=== PATIENT | female | born 1995 | race Asian ===

== ENCOUNTER 2018-04-26 19:13 | Emergency (ER) | payer OTHER ==
[~2018-04-26] VITALS: Ht 175.3 cm; Wt 108.9 kg
[2018-04-26 20:13] VITALS: BP 127/67; TEMP 98.1
== END 2018-04-26 20:19 | disposition home or self-care (01) ==
LOC: ED 19:13
DX: T63.481A Toxic effect of venom of other arthropod, accidental (unintentional), initial encounter (principal); S70.362A Insect bite (nonvenomous), left thigh, initial encounter; W57.XXXA Bitten or stung by nonvenomous insect and other nonvenomous arthropods, initial encounter; Y92.89 Other specified places as the place of occurrence of the external cause
CPT/HCPCS: 99281

== ENCOUNTER 2018-08-02 13:26 | Emergency (ER) | payer OTHER ==
[~2018-08-02] VITALS: Ht 175.3 cm; Wt 108.9 kg
[2018-08-02 13:45] VITALS: BP 137/83; TEMP 99.3
[2018-08-02 15:08] LABS: PLATELET COUNT 239 K/uL (152-353)
[2018-08-02 15:15] LABS: POTASSIUM 3.7 mmol/L (3.6-5.2)
== END 2018-08-02 15:20 | disposition home or self-care (01) ==
LOC: ED 13:26
PROVIDERS: Family Medicine
DX: O26.93 Pregnancy related conditions, unspecified, third trimester (principal)
CPT/HCPCS: 36415; 80053; 81000; 85027; 99283

== ENCOUNTER 2021-07-26 12:02 | Emergency (ER) | payer OTHER ==
[~2021-07-26] VITALS: Ht 172.7 cm; Wt 104.3 kg
[2021-07-26 13:09] VITALS: BP 133/69; TEMP 99
== END 2021-07-26 13:09 | disposition home or self-care (01) ==
LOC: ED 12:02
DX: J06.9 Acute upper respiratory infection, unspecified (principal); J02.0 Streptococcal pharyngitis; F17.210 Nicotine dependence, cigarettes, uncomplicated
CPT/HCPCS: 96372; 99283; J0696; J1100